=== PATIENT | male | born 1975 | race American Indian/Alaskan Native ===

== ENCOUNTER 2016-07-08 23:02 | Emergency (ER) | payer OTHER ==
[2016-07-08 23:15] VITALS: BP 145/95
[2016-07-09 00:22] LABS: Basophils % (Auto) 0.7 % (0.0-1.8); Eosinophils % (Auto) 0.5 % (0.0-4.3); Hematocrit 46.9 % (35.5-45.6); Hemoglobin 15.9 gm/dl (11.8-15.2); Mean Corpuscular HGB Conc 34 % (32-34); Mean Corpuscular Hemoglobin 29 pg (28-32); Mean Corpuscular Volume 85 fl (84-94); Platelet Count 179 K/mm3 (140-440); Red Cell Distribution Width 13.3 % (13.2-15.2); White Blood Count 5.6 K/mm3 (4.5-11.0)
[2016-07-09 00:40] LABS: BUN/Creatinine Ratio 11.81; Blood Urea Nitrogen 13 mg/dL (9-20); Calcium 8.8 mg/dL (8.4-10.2); Carbon Dioxide 20 mmol/L (22-30); Chloride 106.5 mmol/L (98-107); Glucose 79 mg/dL (75-100); Potassium 3.4 mmol/L (3.6-5.0); Sodium 141 mmol/L (137-145)
[2016-07-09 00:52] LABS: Anion Gap 18 mmol/L
--- NOTE | 2016-07-10 18:55 | ED Elopement Review ---
ED Pt Elopement review - Results review Lab results: Laboratory Tests 07/08/16 07/08/16 07/09/16 23:45 23:45 05:55 WBC 5.6 RBC 5.50 H Hgb 15.9 H Hct 46.9 H MCV 85 MCH 29 MCHC 34 RDW 13.3 Plt Count 179 Lymph % (Auto) 28.1 Weber % (Auto) 10.5 H Eos % (Auto) 0.5 Baso % (Auto) 0.7 Lymph # 1.6 Weber # 0.6 Eos # 0.0 Baso # 0.0 Seg Neutrophils % 60.2 Seg Neutrophils # 3.4 Sodium 141 Potassium 3.4 L Chloride 106.5 Carbon Dioxide 20 L Anion Gap 18 BUN 13 Creatinine 1.1 Estimated GFR > 60 BUN/Creatinine Ratio 11.81 Glucose 79 Calcium 8.8 Troponin T < 0.010 < 0.010 - Call Back decision Pt Call Back Decision: No action required
== END 2016-07-09 07:30 | disposition left against medical advice (07) ==
LOC: ED 23:02
DX: R07.9 Chest pain, unspecified (principal); M79.643 Pain in unspecified hand; Z53.21 Procedure and treatment not carried out due to patient leaving prior to being seen by health care provider
CPT/HCPCS: 36415; 80048; 84484; 85025; 93005; 93010

== ENCOUNTER 2016-10-30 00:15 | Emergency (ER) | payer SELFPAY ==
[2016-10-30 00:56] LABS: Basophils % (Auto) 0.9 % (0.0-1.8); Eosinophils % (Auto) 2.2 % (0.0-4.3); Hemoglobin 14.5 gm/dl (11.8-15.2); Mean Corpuscular HGB Conc 34 % (32-34); Mean Corpuscular Hemoglobin 29 pg (28-32); Mean Corpuscular Volume 87 fl (84-94); Platelet Count 167 K/mm3 (140-440); Red Blood Count 4.94 M/mm3 (3.65-5.03); White Blood Count 4.6 K/mm3 (4.5-11.0)
[2016-10-30 01:09] LABS: INR 1.02 (0.87-1.13); Partial Thromboplastin Time 31.6 Sec. (24.2-36.6)
[2016-10-30 02:09] LABS: Anion Gap 15 mmol/L; Blood Urea Nitrogen 11 mg/dL (9-20); Calcium 8.7 mg/dL (8.4-10.2); Carbon Dioxide 23 mmol/L (22-30); Chloride 107.5 mmol/L (98-107); Glucose 91 mg/dL (75-100); Potassium 3.8 mmol/L (3.6-5.0); Sodium 142 mmol/L (137-145)
[2016-10-30 06:33] VITALS: BP 144/99
--- NOTE | 2016-11-01 01:00 | ED Elopement Review ---
ED Pt Elopement review - Results review Lab results: Laboratory Tests 10/30/16 10/30/16 10/30/16 00:45 00:45 00:45 WBC 4.6 RBC 4.94 Hgb 14.5 Hct 43.0 MCV 87 MCH 29 MCHC 34 RDW 14.0 Plt Count 167 Lymph % (Auto) 43.5 H [place] % (Auto) 10.7 H Eos % (Auto) 2.2 Baso % (Auto) 0.9 Lymph # 2.0 [place] # 0.5 Eos # 0.1 Baso # 0.0 Seg Neutrophils % 42.7 Seg Neutrophils # 2.0 PT 13.3 INR 1.02 APTT 31.6 Sodium 142 Potassium 3.8 Chloride 107.5 H Carbon Dioxide 23 Anion Gap 15 BUN 11 Creatinine 1.1 Estimated GFR > 60 BUN/Creatinine Ratio 10.00 Glucose 91 Calcium 8.7 Troponin T < 0.010 10/30/16 10/30/16 04:32 06:43 WBC RBC Hgb Hct MCV MCH MCHC RDW Plt Count Lymph % (Auto) [place] % (Auto) Eos % (Auto) Baso % (Auto) Lymph # [place] # Eos # Baso # Seg Neutrophils % Seg Neutrophils # PT INR APTT Sodium Potassium Chloride Carbon Dioxide Anion Gap BUN Creatinine Estimated GFR BUN/Creatinine Ratio Glucose Calcium Troponin T < 0.010 < 0.010 - Call Back decision Pt Call Back Decision: Pt to F/U with PMD (chest pain may require inpatient evaluation)
== END 2016-10-30 11:10 | disposition left against medical advice (07) ==
LOC: ED 00:15
DX: R04.2 Hemoptysis (principal); M79.642 Pain in left hand; R07.9 Chest pain, unspecified; I25.2 Old myocardial infarction; I10 Essential (primary) hypertension; Z53.21 Procedure and treatment not carried out due to patient leaving prior to being seen by health care provider
CPT/HCPCS: 36415; 80048; 84484; 85025; 85610; 85730; 93005; 93010